=== PATIENT | female | born 1955 | race Caucasian/White ===

== ENCOUNTER 2021-11-03 06:22 | Day surgery (SDC) | payer OTHER ==
[2021-10-31 10:19] LABS: COVID AG,FIA SOURCE NASAL SWAB
[~2021-11-03] VITALS: Ht 152.4 cm; Wt 70.5 kg
[~2021-11-03 06:22] MED LIST: ALBU8HFA IH; AMLO-257 PO; FAMO20 PO; LEFL10TA19 PO; MELO-381 PO; MONT-35 PO
[2021-11-03] MEDS ORDERED: LIDOCAINE 4% 50 ML SOLUTION TP ONE (06:23)
[2021-11-03] MEDS ORDERED: BENZOCAINE 20% 50 MCG/SPRAY 57 GM TP ONE (06:23)
[2021-11-03] MEDS ORDERED: LIDOCAINE 2% 11 ML JELLY TP ONE (06:23)
[2021-11-03] MEDS ORDERED: ALBUTEROL SULFATE 2.5 MG/0.5 ML NEB SOLUTION NEB ONE (06:23)
[2021-11-03] MEDS ORDERED: SODIUM CHLORIDE 0.9% 1,000 ML IV ONE (06:30)
[2021-11-03] MEDS ORDERED: SODIUM CHLORIDE 0.9% 1,000 ML ONE (06:47)
[2021-11-03] MEDS ORDERED: FentaNYL CITRATE PF 100 MCG/2 ML VIAL ONE (07:58)
[2021-11-03] MEDS ORDERED: MIDAZOLAM HCL 5 MG/ML VIAL ONE (07:58)
[2021-11-03] MEDS ORDERED: MethylPREDNISolone SOD SUCC 125 MG/2 ML VIAL IVP ONE (09:30)
[2021-11-03] MEDS ORDERED: MethylPREDNISolone SOD SUCC 125 MG/2 ML VIAL ONE (09:35)
[2021-11-03] MEDS ORDERED: OXYGEN THERAPY IH SCH (20:00)
== END 2021-11-03 10:50 | disposition home or self-care (01) ==
LOC: SURGERY 06:22
PROVIDERS: ATTEND Internal Medicine Critical Care Medicine
DX: J38.4 Edema of larynx (principal); B37.0 Candidal stomatitis; Z72.89 Other problems related to lifestyle; Z98.890 Other specified postprocedural states; J45.909 Unspecified asthma, uncomplicated; Z79.899 Other long term (current) drug therapy
CPT/HCPCS: 87426; 31623; 87206; 87101; 87220; 87015; 87070; 31624; 71045; C9803; J3010; J2930; J2250; Q9967; J7030; J7613; Z7610